=== PATIENT | male | born 1955 | race Caucasian/White ===

== ENCOUNTER 2020-12-25 06:25 | Day surgery (SDC) | payer OTHER ==
[~2020-12-25 06:25] MED LIST: ASPIRIN81 MG PO; LATANOPROST0.005 % OU; LEVOTHYROXIN50 MCG PO; LISINOPRIL20 MG PO; MULTI VIT PO; NORVASC5 M1 PO; OMEPRAZOLE DR20 MG PO; SAW PALMETTO450 MG PO; TIMOLOL 0.25%5 ML OU
[2020-12-25 08:06] VITALS: BP 126/73
== END 2020-12-25 08:25 | disposition home or self-care (01) | DRG 951 ==
LOC: ENDO 06:25
PROVIDERS: ATTEND Surgery
PROC: 0DJD8ZZ Inspection of Lower Intestinal Tract, Via Natural or Artificial Opening Endoscopic (ICD-10-PCS; principal; 2020-12-25)
DX: Z12.11 Encounter for screening for malignant neoplasm of colon (principal); I10 Essential (primary) hypertension; E03.9 Hypothyroidism, unspecified; H40.9 Unspecified glaucoma; F17.200 Nicotine dependence, unspecified, uncomplicated